=== PATIENT | female | born 1970 | race Caucasian/White ===

== ENCOUNTER 2017-02-10 03:34 | Emergency (ER) | payer OTHER ==
[~2017-02-10] VITALS: Ht 162.6 cm; Wt 65.8 kg
--- NOTE | 2017-02-10 03:51 | ED INFLUENZA/URI COMPLAINT ---
History of Present Illness General Chief Complaint: Upper Respiratory Sx/Fever Stated Complaint: SORE THROAT Source: patient, old records Exam Limitations: no limitations Vital Signs & Intake/Output Vital Signs & Intake/Output Vital Signs Date Time Temp Pulse Resp B/P Pulse O2 O2 Flow FiO2 Ox Delivery Rate 02/10 0344 98.6 75 18 126/58 97 Room Air Allergies Coded Allergies: No Known Allergies (02/04/17) Triage Note: PT TO TRIAGE C/O RUNNY NOSE AND SORE THROAT SINCE SATURDAY. PER PT "I WANT TO MAKE SURE IT'S NOT THE FLU." Triage Nurses Notes Reviewed? yes Onset: 3 days Duration: day(s):, constant, continues in ED, getting worse Timing: recent history Severity: moderate Prior Episodes/Possible Cause: illness exposure No Modifying Factors: none Associated Symptoms: cough, fever/chills, muscle aches, nasal congestion, nasal drainage, sinus infection, sore throat LMP (ages 10-50): unknown : No Patient currently breastfeeds: No HPI: 3 days prior to admission patient complains of runny nose ingestion sore throat nonproductive cough body aches. She denies fever chills chest pain shortness breath headache dysuria rash bleeding . Past History Travel History Traveled to [place] past 21 day No Medical History Any Pertinent Medical History? none Surgical History Surgical History: non-contributory Family History Hx Contributory? No Review of Systems Review of Systems Constitutional: Reports: see HPI, malaise. EENTM: Reports: see HPI, nasal congestion, throat pain. Respiratory: Reports: see HPI, cough. Cardiovascular: Reports: no symptoms. GI: Reports: no symptoms. Genitourinary: Reports: no symptoms. Musculoskeletal: Reports: no symptoms. Skin: Reports: no symptoms. Neurological/Psychological: Reports: no symptoms. Hematologic/Endocrine: Reports: no symptoms. Immunologic/Allergic: Reports: no symptoms. All Other Systems: Reviewed and Negative Physical Exam Physical Exam General Appearance: well developed/nourished, alert, awake, anxious, mild distress Head: atraumatic, normal appearance Eyes: Bilateral: normal appearance, PERRL, EOMI. Ears, Nose, Throat: moist mucous membrane, Tympanic normal, nasal congestion, nasal drainage Neck: normal inspection, supple, full range of motion, trachea midline, lymphadenopathy (R), lymphadenopathy (L) Respiratory: normal breath sounds, chest non-tender, no respiratory distress, quiet respiration, lungs clear Cardiovascular: regular rate/rhythm, normal peripheral pulses, norml femoral pulses equa Peripheral Pulses: 4+ carotid (R), 4+ carotid (L) Gastrointestinal: normal bowel sounds, soft, non-tender, no organomegaly Back: normal inspection, normal range of motion Extremities: normal inspection, normal capillary refill, normal range of motion, no edema Neurologic/Psych: no motor/sensory deficits, awake, alert, oriented x 3, normal gait, normal mood/affect, 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 Skin: intact, normal color, warm/dry Lymphatic: adenopathy Core Measures Severe Sepsis Present: No Septic Shock Present: No Progress Differential Diagnosis: influenza, pneumonia, pharyngitis, sinusitis Plan of Care: Orders Procedure Date/time Status RAPID VIRAL INFLUENZA A 02/10 0349 Complete Current Medications Sig/Azam Start time Last Medication Dose Stop Time Status Admin Oseltamivir Phosphate 75 MG ONCE ONE 02/10 050 UNVr (Tamiflu 75MG) 02/10 050 Microbiology 02/10 0402 NASOPHARYN: Influenza Virus A & B Rapid Smear - COMP INFLUENZA TYPE B Initial ED EKG: none Departure Departure Time of Disposition: 447 Disposition: HOME OR SELF CARE Condition: Stable Clinical Impression Primary Impression: Influenza Referrals: YESSENIA QUIROZ MD (PCP/Family) Departure Forms: Customer Survey General Discharge Information RELEASE- WORK Prescriptions: Current Visit Scripts Prednisone 1 TAB PO BID #10 TAB Oseltamivir Phosphate (Tamiflu) 1 CAP PO BID #10 CAP Ibuprofen 1 TAB PO [id number] PRN pain #50 TAB with food
[2017-02-10] MEDS ORDERED: IBUPROFEN600 M1 PO (04:50)
[2017-02-10] MEDS ORDERED: PREDNISONE20 M1 PO (04:50)
[2017-02-10] MEDS ORDERED: TAMIFLU75 M1 PO (04:50)
[2017-02-10 04:57] VITALS: BP 120/68
== END 2017-02-10 04:58 ==
LOC: ERH 03:34
DX: J11.1 Influenza due to unidentified influenza virus with other respiratory manifestations (principal)
CPT/HCPCS: 87804; 87804-59